=== PATIENT | female | born 1960 | race Caucasian/White ===

== ENCOUNTER 2017-02-22 19:20 | Emergency (ER) | payer OTHER ==
[2017-02-22 19:28] VITALS: RESP 16; TEMP 97.9
--- NOTE | 2017-02-22 20:08 | EDPHY ---
HPI/HX/ROS/PE/MDM Narrative: CHIEF COMPLAINT: Left ankle and sternum pain. HPI: This patient is a 56 year old female complaining of left ankle and sternal pain secondary to a mechanical fall this evening around 5:30. She slipped in water that had spilled from her dog's dish and fell, twisting her left ankle and striking her chest on the corner of a dog gate. She iced both areas and took Advil, but the pain continued to be significant so she presents for evaluation. No abdominal pain. She is not anticoagulated. No other complaints. REVIEW OF SYSTEMS: Aside from elements discussed in the HPI, a comprehensive 10-point review of systems was reviewed and is negative. PMH: Hypothyroid. SOCIAL HISTORY: at bedside. . Lives in [place]. PHYSICAL EXAM: General:Patient is alert, in no acute distress. ENT:Eyes are normal to inspection. ENT inspection normal. Neck: Normal inspection. Full range of motion. Respiratory:No respiratory distress. Breath sounds normal bilaterally. Cardiovascular: Regular rate and rhythm. Strong peripheral pulses. Normal cap refill. Chest: Erythema, tenderness to center of sternum. Abdomen:The abdomen is nontender to palpation. There are no peritoneal signs. There are normal bowel sounds. Back: Normal to inspection. No tenderness to palpation. Skin: Normal color. No rash. Warm and dry. Extremities: Left ankle swollen, tender to lateral aspect, range of motion limited due to pain. Other extremities normal appearance, full range of motion. Neuro: Oriented x3. Normal motor function. Normal sensory function. Portions of this note were transcribed by an ED scribe. I personally performed the history, physical exam, and medical decision making; and confirm the accuracy of the information in the transcribed note. ED Course: 56 year old female presents with ankle and sternal pain secondary to a mechanical fall this evening. Plan for x-ray of left ankle and chest. X-ray of ankle shows lateral soft tissue swelling, with possible tiny avulsion fracture from the distal tip of the fibula. X-ray of chest shows no acute processes. Plan to discharge home in good condition with splint and crutches. RICE care and pain management discussed. Follow up and return precautions discussed. The patient is comfortable with this plan. - Data Points Imaging Results: Imaging Impressions Ankle X-Ray 02/22/17 19:34 Impression: Lateral soft tissue swelling, with possible tiny avulsion fracture from the distal tip of the fibula. Chest X-Ray 02/22/17 20:24 Impression: No acute pulmonary disease. X-ray of sternum is negative for fracture or PTX. Imaging: Discussed imaging studies w/ accounting clerks supervisor Radiologist, I viewed and interpreted images myself Medications Given: Discontinued Medications Hydrocodone Bitart/Acetaminophen ([place] 5/325mg Prepack#6) 1 btl TAKEHOME EDNOW ONE Stop: 02/22/17 21:29 Last Admin: 02/22/17 21:32 Dose: 1 btl Ibuprofen (Motrin) 400 mg PO EDNOW ONE Stop: 02/22/17 20:24 Last Admin: 02/22/17 20:51 Dose: 400 mg General Time Seen by Provider: 02/22/17 20:06 Initial Vital Signs: Initial Vital Signs Temperature (C) 36.6 C 02/22/17 19:24 Heart Rate 71 02/22/17 19:24 Respiratory Rate 16 02/22/17 19:24 Blood Pressure 157/89 H 02/22/17 19:24 O2 Sat (%) 97 02/22/17 19:24 O2 Delivery Mode Room Air Allergies/Adverse Reactions: Tetracyclines Allergy (Verified 02/22/17 19:29) Home Medications: Medication Instructions Recorded Biest 02/22/17 Levothyroxine 02/22/17 Naltrexone HCl 02/22/17 Progesterone 02/22/17 T3 02/22/17 TESTOSTERONE 02/22/17 Departure - Departure Disposition: Home, Routine, Self-Care Clinical Impression: Sternal contusion Avulsion fracture of ankle Qualifiers: Encounter type: initial encounter Fracture type: closed Laterality: left Qualified Code(s): S82.892A - Other fracture of left lower leg, initial encounter for closed fracture Condition: Good Instructions: Ankle Sprain (ED) Additional Instructions: Rest, ice, elevation. Take your [place] as prescribed as needed for severe pain. You may also take ibuprofen or Tylenol as directed on the packaging. Do not take Tylenol (acetaminophen) with [place] as this medication already contains acetaminophen. Follow up with an orthopedic surgeon within one week. Return to the emergency department for worsening pain, swelling, numbness, weakness or other concerns. Wear your splint and use crutches at all times until reevaluation. You may partially bear weight as discussed. Referrals: Franc Vazquez MD [Medical Doctor] - As per Instructions Report Scribed for: Ancelmo Sevilla Report Scribed by: Moriah Lerner Date of Report: 02/22/17 Time of Report: 20:08
[2017-02-22] MEDS ORDERED: IBUPROFEN 200 MG TAB PO ONE (20:23)
[2017-02-22] MEDS ORDERED: HYDROCOD/APAP 5/325 PREPACK#6 BTL TAKEHOME ONE (21:28)
[2017-02-22 21:48] VITALS: BP 144/81; PULSE 78; O2SAT 95
== END 2017-02-22 21:44 | disposition home or self-care (01) ==
DX: S82.899A Other fracture of unspecified lower leg, initial encounter for closed fracture (principal); S20.20XA Contusion of thorax, unspecified, initial encounter; W01.10XA Fall on same level from slipping, tripping and stumbling with subsequent striking against unspecified object, initial encounter
CPT/HCPCS: L4350